=== PATIENT | male | born 1960 | race Caucasian/White ===

== ENCOUNTER 2021-12-08 04:30 | Inpatient (IN) ==
[2021-12-08] MEDS ORDERED: TISSUE ADHESIVE 1 EACH APPLICATOR TOP ONE (04:47)
[2021-12-08] MEDS ORDERED: ceFAZolin 1,000 MG VIAL ONE ×2 (04:48→09:20)
[2021-12-08] MEDS ORDERED: ONDANSETRON 4 MG/2 ML VIAL IV STA (04:49)
[2021-12-08] MEDS ORDERED: LACTATED RINGERS 1,000 ML IV STA (04:49)
[2021-12-08] MEDS ORDERED: DIPH/TET/ACEL PERT BOOSTER VACCINE 0.5 ML VIAL IM ONE (04:49)
[2021-12-08] MEDS ORDERED: MORPHINE 2 MG/1 ML SYRINGE ONE (04:56)
[2021-12-08 04:58] LABS: Basophils # 0.1 10*3/uL (0.0-0.2); Basophils % 0.6 % (0.0-0.8); Eosinophils # 0.2 10*3/uL (0.0-0.87); Eosinophils % 1.2 % (0.00-10.9); Hematocrit 40.7 VOL% (42.0-52.0); Hemoglobin 13.5 GM/DL (14.0-18.0); Immature Granulocytes % 0.8 %; Immature Granulocytes Absolute 0.13 #; Lymphocytes # 4.6 10*3/uL (1.4-4.0); Lymphocytes % 29.2 % (21.2-54.2); Mean Corpuscular HGB Conc 33.2 GM/DL (32-36); Mean Corpuscular Volume 88.3 FL (87-102); Mean Platelet Volume 9.7 FL (9.6-12.0); Monocytes # 0.5 10*3/uL (0.11-0.8); Monocytes % 3.3 % (1.7-12.7); Neutrophils % 64.9 % (38.7-73.9); Platelet Count 362 T/CUMM (130-400); Red Blood Count 4.61 MC/CUMM (3.8-5.5); Red Cell Distribution Width 12.5 % (9.3-17.3); White Blood Count 15.9 T/CUMM (4-12)
[2021-12-08 05:19] LABS: Alanine Aminotransferase 300 U/L (16-61); Albumin 3.9 G/DL (3.4-5.0); Alkaline Phosphatase 55 U/L (45-117); Amylase 113 U/L (25-115); Aspartate Amino Transferase 204 U/L (0-37); Blood Urea Nitrogen 19 MG/DL (7-18); CKMB % 1.98 %; Calcium 9.1 MG/DL (8.5-10.1); Carbon Dioxide 20 MMOL/L (21-32); Chloride 102 MMOL/L (98-107); Glucose 249 MG/DL (74-106); Osmolality,Calculated 277.2 MOS/KG (273-304); Potassium 4.5 MMOL/L (3.5-5.1); Sodium 134 MMOL/L (136-145)
[2021-12-08] MEDS ORDERED: ENOXAPARIN 80 MG/0.8 ML SYRINGE SUBCUT ONE (06:14)
[2021-12-08] MEDS ORDERED: LACTATED RINGERS 1,000 ML IV ONE ×2 (06:33→06:35)
[2021-12-08] MEDS ORDERED: ACETAMINOPHEN 325 MG TABLET PO PRN (07:07)
[2021-12-08] MEDS ORDERED: ONDANSETRON 4 MG/2 ML VIAL IV PRN ×3 (07:07→10:55)
[2021-12-08 07:38] LABS: Bacteria,Urine Occasional /HPF (Few); Bilirubin,Urine Negative (Negative); Blood, Urine Moderate mg/dL (Negative); Glucose,Urine (UA) >1000 mg/dL (Negative); Hyaline Casts,Urine 1 /LPF (0-3); Ketones,Urine Negative (Negative); Mucus,Urine Occasional /LPF (Occasional); Nitrite,Urine Negative (Negative); Protein,Urine 30 mg/dL (Negative); RBC,Urine 8 /HPF (0-4); Urine Appearance Clear (Clear); Urine Color Yellow (Yellow); Urine Specific Gravity < 1.005 (1.001-1.035); Urine Urobilinogen 0.2 eU/dL (<2.0)
[2021-12-08 07:45] LABS: Barbiturates Screen,Urine Negative (Negative); Benzodiazepines Screen,Urine Negative (Negative); Cannabinoid Screen,Urine Negative (Negative); Opiate Screen,Urine Positive (Negative); Phencyclidine Screen,Urine Negative (Negative)
[2021-12-08] MEDS ORDERED: SODIUM CHLORIDE 0.9% 1,000 ML IV PRN (08:06)
[2021-12-08] MEDS ORDERED: ROCURONIUM 50 MG/5 ML VIAL IV ONE (08:14)
[2021-12-08] MEDS ORDERED: MIDAZOLAM 2 MG/2 ML VIAL ONE (08:14)
[2021-12-08] MEDS ORDERED: SUCCINYLCHOLINE 200 MG/10 ML VIAL ONE (08:14)
[2021-12-08] MEDS ORDERED: LIDOCAINE 2% 5 ML VIAL ONE (08:14)
[2021-12-08] MEDS ORDERED: ETOMIDATE 40 MG/20 ML VIAL IV ONE (08:14)
[2021-12-08] MEDS ORDERED: propofoL 200 MG/20 ML VIAL IV ONE (08:14)
[2021-12-08] MEDS ORDERED: fentaNYL 100 MCG/2 ML VIAL ONE ×2 (08:15→09:29)
[2021-12-08] MEDS ORDERED: HEPARIN/NACL 0.9% 2 UNITS/ML 0 UNIT/0 ML BAG IV ONE (08:18)
[2021-12-08] MEDS ORDERED: ALBUMIN 5% 25.0 GM/500 ML VIAL IV ONE (08:25)
[2021-12-08] MEDS ORDERED: GLUCAGON 1 MG VIAL IM PRN (08:32)
[2021-12-08] MEDS ORDERED: DEXTROSE 10% 250 ML BAG IV PRN (08:32)
[2021-12-08] MEDS ORDERED: SEVOFLURANE 1 UNIT/15 MINUTE INH ONE (08:59)
[2021-12-08] MEDS ORDERED: DOCUSATE SODIUM 100 MG CAPSULE PO SCH (09:00)
[2021-12-08] MEDS ORDERED: PANTOPRAZOLE 40 MG TABLET PO SCH (09:00)
[2021-12-08] MEDS ORDERED: PHENYLEPHRINE 1 MG/10 ML SYRINGE IV ONE (09:18)
[2021-12-08] MEDS ORDERED: SODIUM CHLORIDE 0.9% 1,000 ML IV ONE ×2 (09:18→14:03)
[2021-12-08] MEDS ORDERED: CALCIUM CHLORIDE 1,000 MG/10 ML VIAL IV ONE (09:18)
[2021-12-08] MEDS ORDERED: SUGAMMADEX 200 MG/2 ML VIAL IV ONE (09:19)
[2021-12-08] MEDS ORDERED: MEPERIDINE 25 MG/1 ML VIAL IV PRN (09:39)
[2021-12-08] MEDS ORDERED: diphenhydrAMINE 50 MG/1 ML VIAL IV PRN (09:39)
[2021-12-08] MEDS: HYDROmorphone 1 MG/1 ML SYRINGE IV PRN ×4 (09:55→23:33)
[2021-12-08] MEDS ORDERED: BUPIVACAINE MPF 0.25% 30 ML VIAL ONE ×2 (10:08)
[2021-12-08 10:11] LABS: Hematocrit 34.5 VOL% (42.0-52.0); Hemoglobin 11.4 GM/DL (14.0-18.0)
[2021-12-08 10:25] LABS: Bilirubin,Urine Negative (Negative); Blood, Urine Moderate mg/dL (Negative); Glucose,Urine (UA) 500 mg/dL (Negative); Hyaline Casts,Urine 10 /LPF (0-3); Ketones,Urine Negative (Negative); Mucus,Urine Occasional /LPF (Occasional); Nitrite,Urine Negative (Negative); Protein,Urine 100 mg/dL (Negative); RBC,Urine 4 /HPF (0-4); Squamous Epithelial Cell,Urine Occasional /HPF (0-10); Urine Appearance Clear (Clear); Urine Color Yellow (Yellow); Urine Specific Gravity 1.015 (1.001-1.035); Urine Urobilinogen 0.2 eU/dL (<2.0); Urine pH 6.5 (4.5-8.0)
[2021-12-08] MEDS ORDERED: ALBUTEROL/IPRATROPIUM 3 ML NEB RESP TX PRN (10:55)
[2021-12-08] MEDS ORDERED: HYDROmorphone 1 MG/1 ML SYRINGE IV PRN (10:55)
[2021-12-08] MEDS: LACTATED RINGERS 1,000 ML IV SCH ×2 (11:02→16:50)
[2021-12-08] MEDS: INSULIN LISPRO 100 UNIT/ML SUBCUT SCH ×2 (13:58→16:52)
[2021-12-08 15:41] LABS: Hematocrit 37.6 VOL% (42.0-52.0); Hemoglobin 12.2 GM/DL (14.0-18.0)
[2021-12-08 15:42] LABS: Basophils % 0.2 % (0.0-0.8); Hematocrit 36.9 VOL% (42.0-52.0); Hemoglobin 12.1 GM/DL (14.0-18.0); Immature Granulocytes % 0.4 %; Immature Granulocytes Absolute 0.07 #; Lymphocytes # 0.9 10*3/uL (1.4-4.0); Lymphocytes % 5.2 % (21.2-54.2); Mean Corpuscular HGB Conc 32.8 GM/DL (32-36); Mean Corpuscular Volume 90.9 FL (87-102); Mean Platelet Volume 9.9 FL (9.6-12.0); Monocytes # 1.1 10*3/uL (0.11-0.8); Monocytes % 6.1 % (1.7-12.7); Neutrophils % 88.1 % (38.7-73.9); Platelet Count 256 T/CUMM (130-400); Red Blood Count 4.06 MC/CUMM (3.8-5.5); White Blood Count 17.3 T/CUMM (4-12)
[2021-12-08 16:00] LABS: Albumin 3.7 G/DL (3.4-5.0); Bilirubin,Total 0.6 MG/DL (0.20-1.00); Calcium 8.9 MG/DL (8.5-10.1); Osmolality,Calculated 280.7 MOS/KG (273-304); Potassium 5.6 MMOL/L (3.5-5.1); Total Protein 6.3 G/DL (6.4-8.2)
[2021-12-08] MEDS: SODIUM CHLORIDE 0.9% 1,000 ML IV SCH (16:15)
[2021-12-08] MEDS: ceFAZolin 2,000 MG/50 ML DUPLEX IV SCH (16:58)
[2021-12-08] MEDS: DOCUSATE SODIUM 100 MG/10 ML UDCUP PO SCH (20:25)
[2021-12-08 21:31] LABS: Calcium 8.1 MG/DL (8.5-10.1); Osmolality,Calculated 282.5 MOS/KG (273-304); Potassium 4.5 MMOL/L (3.5-5.1)
[2021-12-09] MEDS: SODIUM CHLORIDE 0.9% 1,000 ML IV SCH ×2 (00:30→10:10)
[2021-12-09] MEDS: ceFAZolin 2,000 MG/50 ML DUPLEX IV SCH (00:52)
[2021-12-09] MEDS: HYDROmorphone 1 MG/1 ML SYRINGE IV PRN (03:32)
[2021-12-09 05:03] LABS: Basophils % 0.3 % (0.0-0.8); Hematocrit 33.8 VOL% (42.0-52.0); Hemoglobin 11.2 GM/DL (14.0-18.0); Immature Granulocytes % 0.6 %; Immature Granulocytes Absolute 0.07 #; Lymphocytes # 1.1 10*3/uL (1.4-4.0); Lymphocytes % 9.5 % (21.2-54.2); Mean Corpuscular HGB Conc 33.1 GM/DL (32-36); Mean Corpuscular Volume 87.6 FL (87-102); Mean Platelet Volume 9.6 FL (9.6-12.0); Monocytes % 8.3 % (1.7-12.7); Neutrophils % 81.3 % (38.7-73.9); Platelet Count 207 T/CUMM (130-400); Red Blood Count 3.86 MC/CUMM (3.8-5.5); Red Cell Distribution Width 13.2 % (9.3-17.3); White Blood Count 11.9 T/CUMM (4-12)
[2021-12-09 05:14] LABS: INR 1.1; PT Patient Result 11.7 SECS (10.1-12.1)
[2021-12-09 05:27] LABS: Albumin 2.9 G/DL (3.4-5.0); Bilirubin,Total 0.6 MG/DL (0.20-1.00); Osmolality,Calculated 285.3 MOS/KG (273-304); Potassium 4.2 MMOL/L (3.5-5.1); Total Protein 5.8 G/DL (6.4-8.2)
[2021-12-09] MEDS ORDERED: DILTIAZEM 50 MG/10 ML VIAL IV ONE (05:28)
[2021-12-09] MEDS ORDERED: DILTIAZEM INJ 100 MG in SODIUM CHLORIDE 0.9% 100 ML IV SCH (05:30)
[2021-12-09] MEDS ORDERED: DILTIAZEM 25 MG/5 ML VIAL IV ONE ×2 (05:30→23:00)
[2021-12-09 06:10] LABS: Hepatitis B Core IgM Quant 0.38 Index; Hepatitis B Surface Ag Quant < 0.10 Index; Hepatitis B Surface Ag Result Non-Reactive (NonReactive); Hepatitis C Virus Ab Quant < 0.02 Index; Hepatitis C Virus Ab Result Non-Reactive (NonReactive)
[2021-12-09] MEDS ORDERED: LABETALOL 20 MG/4 ML SYRINGE IV ONE (07:57)
[2021-12-09] MEDS: DOCUSATE SODIUM 100 MG/10 ML UDCUP PO SCH ×2 (08:39→20:29)
[2021-12-09] MEDS: INSULIN LISPRO 100 UNIT/ML SUBCUT SCH ×3 (08:41→16:30)
[2021-12-09] MEDS: PANTOPRAZOLE 40 MG VIAL IV SCH (08:41)
[2021-12-09] MEDS: ASCORBIC ACID 500 MG TABLET PO SCH (20:29)
[2021-12-09] MEDS ORDERED: SODIUM CHLORIDE 0.9% 500 ML IV ONE (22:00)
[2021-12-09] MEDS ORDERED: METOPROLOL TARTRATE 5 MG/5 ML VIAL IV ONE (22:00)
[2021-12-09] MEDS ORDERED: METOPROLOL TARTRATE 25 MG TABLET PO ONE (23:00)
[2021-12-10] MEDS: SODIUM CHLORIDE 0.9% 1,000 ML IV SCH ×4 (00:25→22:29)
[2021-12-10 04:21] LABS: Basophils # 0.1 10*3/uL (0.0-0.2); Basophils % 0.3 % (0.0-0.8); Eosinophils # 0.1 10*3/uL (0.0-0.87); Eosinophils % 0.9 % (0.00-10.9); Hematocrit 26.9 VOL% (42.0-52.0); Hemoglobin 8.8 GM/DL (14.0-18.0); Immature Granulocytes % 0.5 %; Immature Granulocytes Absolute 0.08 #; Lymphocytes # 1.2 10*3/uL (1.4-4.0); Lymphocytes % 7.7 % (21.2-54.2); Mean Corpuscular HGB Conc 32.7 GM/DL (32-36); Mean Corpuscular Volume 90.3 FL (87-102); Mean Platelet Volume 9.1 FL (9.6-12.0); Monocytes # 1.2 10*3/uL (0.11-0.8); Monocytes % 7.9 % (1.7-12.7); Neutrophils % 82.7 % (38.7-73.9); Platelet Count 177 T/CUMM (130-400); Red Blood Count 2.98 MC/CUMM (3.8-5.5); Red Cell Distribution Width 13.3 % (9.3-17.3)
[2021-12-10 04:36] LABS: Calcium 7.3 MG/DL (8.5-10.1); Osmolality,Calculated 283.3 MOS/KG (273-304); Potassium 3.8 MMOL/L (3.5-5.1)
[2021-12-10] MEDS: PANTOPRAZOLE 40 MG VIAL IV SCH (08:02)
[2021-12-10] MEDS: DOCUSATE SODIUM 100 MG/10 ML UDCUP PO SCH ×2 (08:03→20:26)
[2021-12-10] MEDS: INSULIN LISPRO 100 UNIT/ML SUBCUT SCH ×3 (08:03→16:35)
[2021-12-10] MEDS: ASCORBIC ACID 500 MG TABLET PO SCH ×2 (08:04→20:26)
[2021-12-10] MEDS: METOPROLOL SUCCINATE XL 25 MG TABLET PO SCH (08:04)
[2021-12-10 09:13] LABS: Albumin 2.5 G/DL (3.4-5.0); Bilirubin,Direct 0.2 MG/DL (0.0-0.20); Bilirubin,Indirect 0.3 MG/DL (0.0-1.0); Bilirubin,Total 0.5 MG/DL (0.20-1.00); Total Protein 5.5 G/DL (6.4-8.2)
[2021-12-10 11:56] LABS: Hematocrit 26.6 VOL% (42.0-52.0); Hemoglobin 8.7 GM/DL (14.0-18.0)
[2021-12-10] MEDS ORDERED: METOPROLOL TARTRATE 5 MG/5 ML VIAL IV PRN (19:56)
[2021-12-11] MEDS: SODIUM CHLORIDE 0.9% 1,000 ML IV SCH (05:11)
[2021-12-11 05:58] LABS: Basophils % 0.3 % (0.0-0.8); Eosinophils # 0.5 10*3/uL (0.0-0.87); Eosinophils % 3.6 % (0.00-10.9); Hematocrit 26.3 VOL% (42.0-52.0); Hemoglobin 8.4 GM/DL (14.0-18.0); Immature Granulocytes % 0.7 %; Immature Granulocytes Absolute 0.09 #; Lymphocytes # 1.3 10*3/uL (1.4-4.0); Lymphocytes % 10.3 % (21.2-54.2); Mean Corpuscular HGB Conc 31.9 GM/DL (32-36); Mean Corpuscular Volume 92.3 FL (87-102); Mean Platelet Volume 9.6 FL (9.6-12.0); Monocytes # 0.9 10*3/uL (0.11-0.8); Monocytes % 7.1 % (1.7-12.7); Platelet Count 190 T/CUMM (130-400); Red Blood Count 2.85 MC/CUMM (3.8-5.5); Red Cell Distribution Width 13.3 % (9.3-17.3); White Blood Count 12.4 T/CUMM (4-12)
[2021-12-11 06:18] LABS: Calcium 8.2 MG/DL (8.5-10.1); Osmolality,Calculated 281.3 MOS/KG (273-304); Potassium 3.8 MMOL/L (3.5-5.1)
[2021-12-11] MEDS: INSULIN LISPRO 100 UNIT/ML SUBCUT SCH ×3 (08:20→16:17)
[2021-12-11] MEDS: METOPROLOL TARTRATE 5 MG/5 ML VIAL IV PRN ×2 (08:57→09:59)
[2021-12-11] MEDS: METOPROLOL SUCCINATE XL 25 MG TABLET PO SCH ×2 (09:05→20:20)
[2021-12-11] MEDS: ASCORBIC ACID 500 MG TABLET PO SCH ×2 (09:05→20:20)
[2021-12-11] MEDS: DOCUSATE SODIUM 100 MG CAPSULE PO SCH ×2 (09:07→20:21)
[2021-12-11] MEDS: PANTOPRAZOLE 40 MG VIAL IV SCH (09:08)
[2021-12-11] MEDS ORDERED: CYCLOBENZAPRINE 10 MG TABLET PO PRN (10:06)
[2021-12-11] MEDS ORDERED: ALBUTEROL 2.5 MG/3 ML NEB RESP TX PRN (10:10)
[2021-12-12 05:48] LABS: Basophils % 0.3 % (0.0-0.8); Eosinophils # 0.4 10*3/uL (0.0-0.87); Eosinophils % 4.3 % (0.00-10.9); Hemoglobin 8.6 GM/DL (14.0-18.0); Immature Granulocytes % 0.7 %; Immature Granulocytes Absolute 0.07 #; Lymphocytes # 1.2 10*3/uL (1.4-4.0); Lymphocytes % 12.7 % (21.2-54.2); Mean Corpuscular HGB Conc 31.9 GM/DL (32-36); Mean Corpuscular Volume 91.8 FL (87-102); Mean Platelet Volume 9.4 FL (9.6-12.0); Monocytes # 0.8 10*3/uL (0.11-0.8); Monocytes % 8.9 % (1.7-12.7); Neutrophils % 73.1 % (38.7-73.9); Platelet Count 254 T/CUMM (130-400); Red Blood Count 2.94 MC/CUMM (3.8-5.5); Red Cell Distribution Width 13.4 % (9.3-17.3); White Blood Count 9.4 T/CUMM (4-12)
[2021-12-12 06:18] LABS: Calcium 8.2 MG/DL (8.5-10.1); Osmolality,Calculated 279.4 MOS/KG (273-304); Potassium 3.8 MMOL/L (3.5-5.1)
[2021-12-12] MEDS ORDERED: ENALAPRIL 5 MG TABLET PO SCH (09:00)
[2021-12-12] MEDS: PANTOPRAZOLE 40 MG VIAL IV SCH (09:42)
[2021-12-12] MEDS: DOCUSATE SODIUM 100 MG CAPSULE PO SCH ×2 (09:42→21:56)
[2021-12-12] MEDS: METOPROLOL SUCCINATE XL 25 MG TABLET PO SCH ×2 (09:42→21:59)
[2021-12-12] MEDS: ASPIRIN EC 81 MG TABLET PO SCH (09:43)
[2021-12-12] MEDS: ASCORBIC ACID 500 MG TABLET PO SCH ×2 (09:43→21:59)
[2021-12-12] MEDS: INSULIN LISPRO 100 UNIT/ML SUBCUT SCH ×3 (10:03→16:09)
[2021-12-12] MEDS: METOPROLOL TARTRATE 5 MG/5 ML VIAL IV PRN ×6 (14:15→19:56)
[2021-12-13 05:56] LABS: Basophils % 0.5 % (0.0-0.8); Eosinophils # 0.4 10*3/uL (0.0-0.87); Eosinophils % 4.8 % (0.00-10.9); Hematocrit 28.1 VOL% (42.0-52.0); Hemoglobin 9.1 GM/DL (14.0-18.0); Immature Granulocytes % 0.5 %; Immature Granulocytes Absolute 0.04 #; Lymphocytes # 1.2 10*3/uL (1.4-4.0); Lymphocytes % 13.7 % (21.2-54.2); Mean Corpuscular HGB Conc 32.4 GM/DL (32-36); Mean Corpuscular Volume 91.8 FL (87-102); Monocytes % 11.8 % (1.7-12.7); Neutrophils % 68.7 % (38.7-73.9); Platelet Count 263 T/CUMM (130-400); Red Blood Count 3.06 MC/CUMM (3.8-5.5); Red Cell Distribution Width 13.3 % (9.3-17.3); White Blood Count 8.5 T/CUMM (4-12)
[2021-12-13 06:21] LABS: Calcium 8.5 MG/DL (8.5-10.1); Osmolality,Calculated 278.5 MOS/KG (273-304); Potassium 3.7 MMOL/L (3.5-5.1)
[2021-12-13] MEDS: INSULIN LISPRO 100 UNIT/ML SUBCUT SCH ×2 (08:00→11:38)
[2021-12-13] MEDS: DOCUSATE SODIUM 100 MG CAPSULE PO SCH (09:09)
[2021-12-13] MEDS: METOPROLOL SUCCINATE XL 25 MG TABLET PO SCH (09:09)
[2021-12-13] MEDS: ASPIRIN EC 81 MG TABLET PO SCH (09:09)
[2021-12-13] MEDS: ASCORBIC ACID 500 MG TABLET PO SCH (09:09)
[2021-12-13] MEDS: PANTOPRAZOLE 40 MG VIAL IV SCH (09:09)
[2021-12-13 13:00] VITALS: BP 125/68
[2021-12-13] MEDS ORDERED: METOPROLOL SUCCINATE XL 50 MG TABLET PO ONE (13:00)
[2021-12-13] MEDS ORDERED: METOPROLOL SUCCINATE XL 50 MG TABLET PO SCH (21:00)
== END 2021-12-13 14:56 | disposition home health service (06) | DRG 908 ==
LOC: EDBD 04:30 → N.ED 04:30 → N.ICU 07:07 → N.3E 12-11 15:23
PROVIDERS: ADMIT Surgery; ATTEND Surgery